=== PATIENT | male | born 2000 | race African-American/Black ===

== ENCOUNTER 2021-03-06 17:53 | Emergency (ER) | payer OTHER, SELFPAY ==
--- NOTE | 2021-03-06 | ECG_ITS ---
Test Reason : PALPITATIONS Blood Pressure : / mmHG Vent. Rate : 083 BPM Atrial Rate : 083 BPM P-R Int : 170 ms QRS Dur : 094 ms QT Int : 346 ms P-R-T Axes : 066 081 026 degrees QTc Int : 406 ms Normal sinus rhythm Normal ECG No previous ECGs available Referred By: Generic ED Physician Electronically Signed By:MELINDA SANCHEZ MD
--- NOTE | ~2021-03-06 | XR_ITS ---
EXAMINATION: XR CHEST CLINICAL INFORMATION: Right-sided rib pain COMPARISON: 01/28/2017 TECHNIQUE: 2 views of the chest were obtained. FINDINGS: No significant abnormality is noted involving the heart, lungs, mediastinum, bony thorax or soft tissues. XR/XR chest 2V IMPRESSION: Unremarkable examination.
[2021-03-06 18:24] VITALS: BP 125/67; PULSE 86; RESP 18; TEMP 36.9; O2SAT 97; BMI 22.6
--- NOTE | 2021-03-06 21:14 | ED.CHESTPAIN ---
HPI - Chest Pain General Chief Complaint: Chest Pain Stated Complaint: rib pain Time Seen by Provider: 03/06/21 20:36 Source: patient Mode of arrival: ambulatory Limitations: no limitations History of Present Illness HPI narrative: Patient presents to ED for bilateral chest wall pain for 2 months. Patient denies any shortness of breath, chest pain on inspiration, swelling of lower extremities, calf pain, coughing up blood, fever, or chills. Patient does admits to doing large number of pushups every day for the past 2 months and other workouts. Patient denies any blunt trauma to the chest. Related Data Previous Rx's Medication Instructions Recorded naproxen 500 mg PO BID PRN #20 tab 03/06/21 Allergies Allergy/AdvReac Type Severity Reaction Status Date / Time No Known Allergies Allergy Verified 03/06/21 18:23 [No Known Allergies*] Review of Systems Review of Systems: Yes all other systems are reviewed and are negative Constitutional: Constitutional: Reports as per HPI and Reports no additional constitutional complaints Eyes: Eyes: Reports as per HPI and Reports no additional eye complaints ENT: Reports system reviewed and no additional complaints, except as documented and Reports as per HPI Cardiovascular: Cardiovascular: Reports as per HPI, Reports no additional cardiovascular complaints and Reports chest pain Respiratory: Respiratory: Reports as per HPI and Reports no additional respiratory complaints Gastrointestinal: Gastrointestinal: Reports as per HPI and Reports no additional gastrointestinal complaints Musculoskeletal: Musculoskeletal: Reports no additional musculoskeletal complaints and Reports as per HPI Neurologic: Reports system reviewed and no additional complaints, except as documented and Reports as per HPI Psychiatric: Psychiatric: Reports no additional psychiatric complaints and Reports as per HPI FOR[facility]LY [facility] Social History Social History Smoked in Last 30 Days: No Use of substances other than those prescribed or required for medical reasons: No Advance Directives: No Advance Directives Information Provided: Yes Physical Exam Vital Signs: Vital Signs: Last Vital Signs Temp 98.4 F 03/06/21 18:24 Pulse 86 03/06/21 18:24 Resp 18 03/06/21 18:24 BP 125/67 03/06/21 18:24 Pulse Ox 97 03/06/21 18:24 Body Mass Index 22.6 Const: General: cooperative, healthy appearing, comfortable, no acute distress, well developed and awake Orientation/consciousness: patient oriented x3 HENMT: Head: Yes normal to inspection, Yes No palpable skull fracture present, Yes normocephalic and Yes atraumatic Eyes: General: appearance normal, both eyes and all related structures Neck: Neck: Yes normal visual inspection, Yes full ROM, Yes no lymphadenopathy, Yes no meningeal signs, Yes trachea midline and Yes supple Chest: Other: Positive for bilateral chest wall tenderness on palpation. Negative for crepitus Chest palpation & inspection: normal inspection of the chest Resp: Effort & Inspection: normal respiratory effort and able to speak in complete sentences Auscultation: clear to auscultation bilaterally, no crackles, no rales, no rhonchi and no wheezes Cardio: Jugular venous distension: no JVD Heart sounds: S1 normal heart sound present and S2 normal heart sound present GI: Other: Negative seatbelt sign Inspection: Yes normal to inspection and No abdominal wall ecchymosis Palpation (GI): Soft to palpation, not firm, nontender, no guarding and not rigid : General: No CVA tenderness and Yes no CVA tenderness Back/Spine/Pelvis: Back: no CVA tenderness, No CVA tenderness and No back tenderness Skin: General skin exam: no rashes or lesions noted and elasticity normal Neuro: General: patient oriented x3, no meningeal signs and CN's II-XI intact bilaterally Cranial nerves: Yes CN's II-XII intact bilaterally Extrem: Other: Negative for any swelling, erythema, calf tenderness, or pitting edema of lower extremities. General: Yes normal to inspection and Yes full ROM Psych: Appearance: grossly normal, well kempt and not disheveled Course Course Course Narrative: Patient EKG normal. Will have chest x-ray done Reevaluation(s) Reevaluation #1: Patient EKG normal. Negative STEMI. Chest x-ray negative for pneumonia, pneumothorax, rib fractures. Not suspecting cardiac etiology or PE. Patient is safe for discharge. Perc score 0 MDM - Chest Pain MDM Narrative Medical decision making narrative: Chest wall pain ECG Data ECG #1: Interpretation: Normal sinus rhythm. GA interval 170. QTC 346. QTC 406. Negative STEMI. Normal EKG Discharge Plan Discharge Clinical Impression: Atypical chest pain, Acute chest wall pain Patient Disposition: Home, Self-Care Instructions: Chest Pain (ED), Chest Wall Pain (ED) Additional Instructions: Return to the ED immediately for worsening chest pain, shortness of breath, chest pain inspiration, swelling of lower extremities, calf pain, coughing up blood, fever, chills, or any other concerning symptoms. Prescriptions: New naproxen 500 mg tablet 500 mg PO BID PRN (Reason: pain) Qty: 20 RF: 0 Referrals: Kendrick Manzanares MD [Primary Care Provider] - 2 days (Chest x-ray and EKG normal. Chest wall pain) Interventions: ED Discharge Assessment Last Done: 03/06/21 22:15 Discharge Date/Time: 03/06/21 22:16 Print Language: Grenadian
== END 2021-03-06 22:16 | disposition home or self-care (01) ==
PROVIDERS: Emergency Provider Internal Medicine; PCP Internal Medicine
DX: R07.89 Other chest pain (principal); R07.9 Chest pain, unspecified
CPT/HCPCS: 71046; 93005; 99283; 99284

== ENCOUNTER 2021-04-13 03:06 | Emergency (ER) | payer OTHER, SELFPAY ==
--- NOTE | 2021-04-13 | ECG_ITS ---
Test Reason : CHEST PAIN Blood Pressure : / mmHG Vent. Rate : 067 BPM Atrial Rate : 067 BPM P-R Int : 184 ms QRS Dur : 092 ms QT Int : 364 ms P-R-T Axes : 050 059 029 degrees QTc Int : 384 ms Normal sinus rhythm Normal ECG When compared with ECG of 06-MAR-2021 18:49, No significant change was found Referred By: Generic ED Physician Electronically Signed By:MELINDA SANCHEZ MD
[2021-04-13 04:02] VITALS: BP 122/84; PULSE 66; RESP 16; TEMP 36.8; O2SAT 98; BMI 28.4
[2021-04-13 04:10] VITALS: PULSE 69
--- NOTE | 2021-04-13 05:48 | ED_ITS ---
HPI - Chest Pain General Chief Complaint: Chest Pain Stated Complaint: chest pains Time Seen by Provider: 04/13/21 05:45 Source: patient Mode of arrival: ambulatory Limitations: no limitations History of Present Illness HPI narrative: Patient comes emergency room complaining o chest pain for 1 week, radiating towards the left shoulder. Denies shortness of breath. Patient states he noticed that the pain started after he stops smoking marijuana. Patient denies leg swelling, no dizziness, no near syncopal episodes. No palpitations. Related Data Previous Rx's Medication Instructions Recorded naproxen 500 mg PO BID PRN #20 tab 03/06/21 Allergies Allergy/AdvReac Type Severity Reaction Status Date / Time No Known Allergies Allergy Verified 03/06/21 18:23 [No Known Allergies*] Review of Systems Review of Systems: Constitutional : No Weight loss, No Fever, No Chills, No Night Sweats, No Fatigue, No Malaise ENT/Mouth : No Hearing loss, No Ear Pain, No Nasal Congestion, No Sinus Pain, No Hoarseness, No sore throat, No Rhinorrhea, No Swallowing Difficulty Eyes: No Eye Pain, No Swelling, No Redness, No Foreign Body, No Discharge, No Vision Changes Cardiovascular : Complaining chest pressure on the left side radiating towards the left shoulder, No SOB, No Dyspnea on Exertion, No Orthopnea, No Edema, No Palpitations Respiratory : No Cough, No Sputum, No Wheezing, No Smoke Exposure, No Dyspnea Gastrointestinal : No Nausea, No Vomiting, No Diarrhea, No Constipation, No abdominal Pain, No Hematochezia, No Melena Genitourinary : no irregular bleeding, No Dysuria, No Urinary Frequency, No Hematuria, No Urinary Incontinence, No Urgency, No Flank Pain, No Urinary Flow Changes, No Hesitancy Musculoskeletal : No joint pain, No Myalgias, No Joint Swelling Skin : No Skin Lesions, No rash Neuro : No Weakness, No Numbness, No Paresthesias, No Loss of Consciousness, No Dizziness, No Headache Psych : No Anxiety/Panic, No Depression, No SI/HI/AH/VH, No Social Issues, Heme/Lymph: No Bruising, No Bleeding,No Lymphadenopathy Endocrine : No Polyuria, No Polydipsia, No Temperature Intolerance [facility] Social History Social History Alcohol intake: current Alcohol intake frequency: holidays/special occasions only Smoking Status: Never smoker Use of substances other than those prescribed or required for medical reasons: Yes Substance Use Type: Marijuana Advance Directives: No Advance Directives Information Provided: No Physical Exam Vital Signs: Vital Signs: Last Vital Signs Temp 98.2 F 04/13/21 04:02 Pulse 66 04/13/21 04:02 Resp 16 04/13/21 04:02 BP 122/84 04/13/21 04:02 Pulse Ox 98 04/13/21 04:02 Body Mass Index 28.4 Appearance: Alert. Oriented X3. No acute distress. Eyes: Pupils equal, round and reactive to light. ENT: Pharynx normal. Neck: Normal inspection. Neck supple. No lymph nodes noted. No crepitus CVS: Normal heart rate and rhythm. Pulses normal. Normal S1 and S2 Respiratory: No respiratory distress. Breath sounds normal. No Wheezing. No rales Abdomen: Soft and nontender. No rigidity. No distention. good BS x4 Skin: Skin warm and dry. Normal skin color. Normal skin turgor. Extremities: No lower extremity edema. No lower extremity edema. No Lacerations. No Rash Neuro: Oriented X 3. No motor deficit. No sensory deficit. Moving all extermities. No slurred speech. Course Course Course Narrative: Discussed the labs with the patient, patient likely having musculoskeletal pain. MDM - Chest Pain Lab Data Result diagrams: 04/13/21 05:54 04/13/21 05:54 Labs: Lab Results 04/13/21 04/13/21 04/13/21 Range/Units 05:54 05:54 05:54 WBC 6.9 (4.8-10.8) X10*3/uL RBC 5.00 (4.60-5.80) X10*6/uL Hgb 16.0 (14.0-18.0) g/dl Hct 46.0 (42-52) % MCV 92.0 (80-98) fL MCH 32.0 (27.0-33.0) pg MCHC 34.8 (31.0-36.0) g/dl RDW 12.5 (11.0-16.0) % Plt Count 218 (160-400) X10*3/uL MPV 10.1 (9.4-12.4) fL Immature Gran % (Auto) 0.3 (0.0-0.4) % Neut % (Auto) 50.6 (45-73) % Lymph % (Auto) 35.1 (20-40) % Carver % (Auto) 11.4 H (2-11) % Eos % (Auto) 2.3 (0-4) % Baso % (Auto) 0.3 (0-2) % Lymph # (Auto) 2.4 (1.2-4.9) X10*3/uL Carver # (Auto) 0.8 (0.1-1.2) X10*3/uL Eos # (Auto) 0.2 (0.0-0.4) X10*3/uL Baso # (Auto) 0.0 (0.0-0.2) X10*3/uL Abs Immat Gran (auto) 0.02 (0.00-0.03) X10*3/uL Absolute Neuts (auto) 3.5 (2.0-8.3) X10*3/uL Absolute Nucleated RBC 0.000 (0.0-0.012) X10*3/uL Nucleated RBC % (auto) 0.0 (0.0-0.2) /100WBC Sodium 141 (135-145) mmol/L Potassium 4.1 (3.3-5.1) mmol/L Chloride 105 (96-108) mmol/L Carbon Dioxide 27 (22-29) mmol/L Anion Gap 13 (12-20) BUN 16 (9-16) mg/dL Creatinine 1.07 (0.5-1.4) mg/dL Estim Creat Clear Calc 109.4 Estimated GFR > 60 Random Glucose 87 (60-115) mg/dL Calcium 9.8 (8.4-10.2) mg/dL Troponin I High Sens < 3.5 (<3.5-35.0) ng/L ECG Data ECG #1: Attestation: I personally reviewed and interpreted this ECG as follows: (A rate 67, no ST segment depression or elevation, no T-wave inversion, sinus rhythm, QTC 384) Discharge Plan Discharge Clinical Impression: Atypical chest pain Patient Disposition: Home, Self-Care Instructions: Chest Pain (ED) Additional Instructions: Please follow-up with your primary care physician tomorrow. If you have any worsening or new symptoms, please return to the emergency room or call 911 Prescriptions: No Action naproxen 500 mg tablet 500 mg PO BID PRN (Reason: pain) Qty: 20 RF: 0
[2021-04-13 05:59] LABS: MANUAL DIFF FLAG NO
[2021-04-13 06:00] LABS: Basophils Percent Auto 0.3 % (0-2); Eosinophils Absolute Auto 0.2 X10*3/uL (0.0-0.4); Eosinophils Percent Auto 2.3 % (0-4); Imm Gran Abs Auto 0.02 X10*3/uL (0.00-0.03); Imm Gran Pct Auto 0.3 % (0.0-0.4); Lymphocytes Absolute Auto 2.4 X10*3/uL (1.2-4.9); Lymphocytes Percent Auto 35.1 % (20-40); Mean Corpuscular HGB Conc 34.8 g/dl (31.0-36.0); Mean Platelet Volume 10.1 fL (9.4-12.4); Monocytes Absolute Auto 0.8 X10*3/uL (0.1-1.2); Monocytes Percent Auto 11.4 % (2-11); Neutrophils Absolute Auto 3.5 X10*3/uL (2.0-8.3); Neutrophils Percent Auto 50.6 % (45-73); Platelet Count 218 X10*3/uL (160-400); Red Cell Distribution Width 12.5 % (11.0-16.0); White Blood Count 6.9 X10*3/uL (4.8-10.8)
[2021-04-13 06:27] LABS: Anion Gap 13 (12-20); Blood Urea Nitrogen 16 mg/dL (9-16); Calcium 9.8 mg/dL (8.4-10.2); Carbon Dioxide 27 mmol/L (22-29); Chloride 105 mmol/L (96-108); Creatinine Clr Calc Pharmacy 109.4; Estimated Glomerular Filt Rate > 60; Glucose Random 87 mg/dL (60-115); Potassium 4.1 mmol/L (3.3-5.1); Sodium 141 mmol/L (135-145)
[2021-04-13 06:36] LABS: Troponin-I High Sensitivity < 3.5 ng/L (<3.5-35.0)
== END 2021-04-13 06:47 | disposition home or self-care (01) ==
PROVIDERS: Emergency Provider Emergency Medicine
DX: R07.89 Other chest pain (principal)
CPT/HCPCS: 36415; 80048; 84484; 85025; 93005; 99283; 99285

== ENCOUNTER 2021-04-19 23:53 | Emergency (ER) | payer OTHER, SELFPAY ==
--- NOTE | ~2021-04-19 | XR_ITS ---
EXAMINATION: XR CHEST CLINICAL INFORMATION: Chest pain COMPARISON: 03/06/2021 TECHNIQUE: Frontal view of the chest was obtained. FINDINGS: The lungs are clear with no focal consolidation. No evidence of pneumothorax, pulmonary edema, or pleural effusions. The cardiomediastinal silhouette is unremarkable. No acute osseous findings. XR/XR chest 1V IMPRESSION: No acute cardiopulmonary findings.
--- NOTE | 2021-04-20 | ECG_ITS ---
Test Reason : CHEST PAIN Blood Pressure : / mmHG Vent. Rate : 080 BPM Atrial Rate : 080 BPM P-R Int : 170 ms QRS Dur : 090 ms QT Int : 342 ms P-R-T Axes : 064 074 046 degrees QTc Int : 394 ms Normal sinus rhythm Normal ECG When compared with ECG of 13-APR-2021 04:12, No significant change was found Referred By: Generic ED Physician Electronically Signed By:MELINDA SANCHEZ MD
[2021-04-20 01:48] VITALS: BP 125/76; PULSE 80; RESP 18; TEMP 36.8; O2SAT 98; BMI 22.6
--- NOTE | 2021-04-20 05:19 | ED.CHESTPAIN ---
HPI - Chest Pain General Chief Complaint: Chest Pain Stated Complaint: chest pain Time Seen by Provider: 04/20/21 05:13 Source: patient Mode of arrival: ambulatory History of Present Illness HPI narrative: 20-year-old male complained left-sided chest pain that continues to persist since last evaluated on 04/13 and encompasses his entire shoulder girdle as well as axilla. However, he denies any fevers, chills, recent trauma, recent travel, new cough, sore throat. Related Data Previous Rx's Medication Instructions Recorded naproxen 500 mg PO BID PRN #20 tab 03/06/21 Allergies Allergy/AdvReac Type Severity Reaction Status Date / Time No Known Allergies Allergy Verified 03/06/21 18:23 [No Known Allergies*] Review of Systems Review of Systems: Pertinent positives and negatives as stated in HPI 10 point review of systems is otherwise negative. [facility] Past Medical History Source: nursing notes reviewed Medical History No known health problems Social History Social History Alcohol intake: never Smoking Status: Never smoker Use of substances other than those prescribed or required for medical reasons: No Substance Use Type: Marijuana Advance Directives: No Advance Directives Information Provided: No Physical Exam Vital Signs: Vital Signs: Last Vital Signs Temp 98.3 F 04/20/21 01:48 Pulse 80 04/20/21 01:48 Resp 18 04/20/21 01:48 BP 125/76 04/20/21 01:48 Pulse Ox 98 04/20/21 01:48 Body Mass Index 22.6 VITAL SIGNS: Reviewed. GENERAL: Well developed, well nourished, in no acute distress. HEAD: Normocephalic/atraumatic EYES: PERRLA, EOMI EARS: Ext canals without abnormality NOSE: Nares patent bilateral OROPHARYNX: no oral lesions noted, posterior pharynx clear NECK: Supple, no adenopathy LUNGS: Normal breath sounds. No adventitious sounds or accessory muscle use. SpO2<98> CHEST WALL: Mild pain on palpation across anterior chest wall across to the axilla without erythema are crepitus CARDIOVASCULAR: Regular rate and rhythm without noted murmurs ABDOMEN: Soft, non-tender, non-distended with bowel sounds. MUSCULOSKELETAL: No tenderness, deformities, or effusions noted on gross inspection. EXTREMITIES: No cyanosis, clubbing or edema. NEUROLOGIC: Alert and oriented x 4. Course Course Course Narrative: 20-year-old male with history and clinical presentation most consistent with musculoskeletal pain, however review brief investigations as well as review of prior lab work from 04/13 there are no acute findings and history is most consistent with musculoskeletal such as costochondritis. Patient was informed of all results and discharged in stable condition with instructions to follow-up with his primary care provider. MDM - Chest Pain Lab Data Labs: Lab Results 04/20/21 Range/Units 05:27 D-Dimer < 200 NG/ML Discharge Plan Discharge Clinical Impression: Atypical chest pain, Costochondritis Patient Disposition: Home, Self-Care Instructions: Costochondritis (ED) Additional Instructions: 1. Tylenol 1000 mg, orally, every 6 hours as needed for pain control. Do not exceed 4000 mg within 24 hours. 2. Lidocaine patch, these are available in every [facility], apply to area of maximal pain as instructed on the outside packaging. 3. Please follow-up with your primary care provider in the next 2-3 days for re-evaluation. Return to the emergency room for any acute worsening of symptoms. Prescriptions: No Action naproxen 500 mg tablet 500 mg PO BID PRN (Reason: pain) Qty: 20 RF: 0 Referrals: Physician,Unknown [Primary Care Provider] - 2 days
[2021-04-20 05:41] LABS: D Dimer < 200 NG/ML
== END 2021-04-20 06:28 | disposition home or self-care (01) ==
PROVIDERS: Emergency Provider Student in an Organized Health Care Education/Training Program
DX: R07.89 Other chest pain (principal); M94.0 Chondrocostal junction syndrome [Tietze]
CPT/HCPCS: 36415; 71045; 85379; 93005; 99283; 99284

== ENCOUNTER 2022-06-29 12:37 | Outpatient (REF) | payer OTHER, SELFPAY ==
[2022-06-29 13:50] LABS: HBS Num1 1.99 mIU/mL (0-7.99); HBc Num1 0.09 S/CO (0.00-0.79); HBsAGNum1 0.26 S/CO (0.00-0.99); HIV AB/AG Nonreactive (Nonreactive); HIV Num 1 0.13 S/CO (0.00-0.99); Hepatitis B Core Antibody Nonreactive (Nonreactive); Hepatitis B Surface Antigen Negative (Negative); ~HepC Num1 0.07 S/CO (0.00-0.79); ~Hepatitis B Surface Antibody NONREACTIVE (Nonreactive); ~Hepatitis C Antibody Nonreactive (Nonreactive)
[2022-06-29 14:33] LABS: Syphilis Screen Nonreactive (Nonreactive)
== END 2022-06-29 12:38 | disposition home or self-care (01) ==
LOC: HO.LAB 12:37
PROVIDERS: Visit Provider Nurse Practitioner Family
DX: Z11.4 Encounter for screening for human immunodeficiency virus [HIV] (principal); Z11.3 Encounter for screening for infections with a predominantly sexual mode of transmission
CPT/HCPCS: 86704; 86706; 86780; 86803; 87086; 87340; 87389

== ENCOUNTER 2023-11-28 13:36 | Outpatient (AMB) | payer OTHER, SELFPAY ==
--- NOTE | 2023-11-28 13:42 | MHC.PC.OV ---
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 Accompanied by: Self / Same As Patient Allergies No Known Allergies [No Known Allergies*] Allergy (Verified 11/28/23 13:48) Medication List - Last Reconciled 11/28/23 by Layne Lindquist MD No Known Home Meds Tobacco use date assessed: 11/28/23 Dental Screening Dental Screen Date: 11/28/23 Did you have a dental visit in the last 12 months?: Yes Did you have a dental problem in the last 6 months where you did not have access to dental care?: No Was dental information given to patient?: Patient has dentist HPI HPI Comments History of Present Illness Details This is a 23-year-old male that comes for his physical exam. No chest pain or shortness of breath. Complains of skin warts in right hand. Doing well. [facility] Medical History (Updated 11/28/23 @ 13:57 by Layne Lindquist MD) Skin lesion Costochondritis Surgical History No pertinent past surgical history Family History Mother No problems noted. Father No problems noted. Paternal Uncle Lymphoma, Onset Age: 35 Social History Housing: House Alcohol intake: current Alcohol intake frequency: holidays/special occasions only Alcohol type: wine and hard liquor Patient Tobacco Use Status: Never used Tobacco e-Cigarette/Vaping Use: Never Used Second Hand Smoke Exposure: No service: No Current occupational status: employed and student Current occupational exposures/hazards: No Cognitive needs: No Hearing needs: No Vision needs: Yes Questionnaire PHQ-9 Over the last 2 weeks, how often have you been bothered by any of the following problems? 1. Little interest or pleasure in doing things: not at all 2. Feeling down, depressed, or hopeless: not at all 3. Trouble falling or staying asleep, or sleeping too much: not at all 4. Feeling tired or having little energy: not at all 5. Poor appetite or overeating: not at all 6. Feeling bad about yourself - or that you are a failure or have let yourself or your family down: not at all 7. Trouble concentrating on things, such as reading the newspaper or watching television: not at all 8. Moving or speaking so slowly that other people could have noticed. Or the opposite - being so fidgety or restless that you have been moving around a lot more than usual: not at all 9. Thoughts that you would be better off or of hurting yourself in some way: not at all Total score: 0 Depression Screening Interpretation: Negative Depression Screening Done: Yes 63835 - PHQ-9 Billing: Yes Source: Developed by Drs. Daniel Vega, Teresa Sutherland, Raimundo Fitzgerald and colleagues, with an educational tonio from [employer]. Thrive Questionnaire Date Thrive assessed: 11/28/23 I am a: Patient What is your living situation today?: I have a steady place to live Within the past 12 months, did the food you bought not last and you didn't have the money to get more?: Never true Within the past 12 months, did you worry whether your food would run out before you got money to buy more?: Never true Do you have trouble paying for medicines?: No Do you have trouble getting transportation to medical appointments?: No Do you have trouble paying your heating and electricity bill?: No Do you have trouble taking care of your child, family member or friend?: No Do you have trouble with day-to-day activities such as bathing, preparing meals, shopping, managing finances, etc.?: No Are you currently unemployed and looking for a job?: No Are you interested in more education?: No Please select the resources that you would like help with: None Currently or been in a relationship where the following occur: no concerns reported AUDIT C Alcohol Use Questionnaire (AUDIT-C) 1. How often do you have a drink containing alcohol?: Monthly or less 2. How many drinks containing alcohol do you have on a typical day when you are drinking?: 1 or 2 3. How often do you have six or more drinks on one occasion?: Never Total Score: 1 Score Reviewed/Action Taken: No MARYA-7 AMB Questionnaire MARYA-7 Date MARYA - 7 assessed: 11/28/23 Feeling nervous, anxious, or on edge: 0 = Not at all Not being able to stop or control worryin = Not at all Worrying too much about different things: 0 = Not at all Trouble relaxin = Not at all Being so restless that it is hard to sit still: 0 = Not at all Becoming easily annoyed or irritable: 0 = Not at all Feeling afraid as if something awful might happen: 0 = Not at all Total MARYA-7 score (0-4 normal; 5-9 mild; 10-14 moderate; 15-21 severe): 0 Source: Developed by Drs. Daniel Vega, Teresa Sutherland, Raimundo Fitzgerald and colleagues, with an educational tonio from [employer]. MARYA-7 Assessment Billing MARYA-7 Assessment Tool: MARYA-7 Assessment 74425 Review of Systems Const All systems reviewed & are unremarkable except as noted in HPI and below Eyes Reports no additional complaints, Denies change in vision and Denies other visual disturbances Card Denies chest pain at rest, Denies chest pain with activity, Denies edema, Denies irregular heart rhythm, Denies claudication, Denies dyspnea, Denies dyspnea on exertion, Denies orthopnea, Denies paroxysmal nocturnal dyspnea and Denies slow heart rate Resp Denies cough, Denies dyspnea and Denies dyspnea on exertion GI Denies abdominal pain, Denies change in bowel habits, Denies excessive flatus, Denies nausea and Denies vomiting Denies urinary hesitancy, Denies urinary incontinence and Denies urinary urgency Musc Denies abnormal gait, Denies atrophy, Denies deformity and Denies limited range of motion Skin/Breast Denies bleeding lesions, Denies changing lesions and Denies rash Neuro Denies abnormal gait, Denies behavioral changes, Denies confusion and Denies lack of coordination Psych Denies behavioral changes and Denies confusion Physical exam (Primary Care) Vital Signs: Last Vital Signs BP 120/80 11/28/23 13:43 BMI result Body Mass Index 32.0 Tobacco/Smoking Status: Tobacco use Status Tobacco use date assessed 11/28/23 11/28/23 13:47 Patient Tobacco Use Status Never used Tobacco 11/28/23 13:47 e-Cigarette/Vaping Use Never Used 11/28/23 13:47 PHQ-9: PHQ-9 Score PHQ-9: Total score 0 11/28/23 13:47 Depression Screening Interpretation: Negative Thrive Assessment: Date of Thrive Assessment Date Thrive assessed 11/28/23 11/28/23 13:47 Currently or been in a relationship where the following occur: no concerns reported Const General: No confusion Orientation/consciousness: patient oriented x3 and No confusion HENMT Head: Yes normal to inspection, Yes normocephalic and Yes atraumatic Ears: external ears normal Eyes General: appearance normal, both eyes and all related structures Eyelids: Yes eyelids normal Conjunctivae: conjunctivae normal Neck Neck: Yes normal visual inspection and Yes supple Resp Effort & Inspection: normal respiratory effort Auscultation: clear to auscultation bilaterally Cardio Jugular venous distension: no JVD Rate: regular rate Rhythm: regular rhythm Heart sounds: S1 normal heart sound present and S2 normal heart sound present GI Inspection: Yes normal to inspection Palpation (GI): Soft to palpation and nontender Auscultation: normal bowel sounds Back/Spine/Pelvis Other: warts in right hand Neuro General: patient oriented x3, no focal motor deficits and No confusion Extrem General: Yes full ROM Psych Appearance: grossly normal Office Procedures Flu Questionnaire Does the patient have a severe egg allergy?: No Immunizations flu vacc [id number] 6mos up(PF) 60 mcg(15 mcgx4)/0.5 mL IM syringe Performing Provider: Layne Lindquist MD Performing Location: [facility] Documented (not given) by: CHHAYA Maloney on 11/28/23 13:47 Reason Not Given: Patient Refused Assessment and Plan Assessment & Plan (1) Encounter for physical examination: Code(s): Z00.00 - Encounter for general adult medical examination without abnormal findings Plan: Repeat in a year. Orders: Orders Influenza [id number] Immunization Today Z23 - Encounter for immunization Lipid Panel Today Z00.00 - Encounter for general adult medical examination without abnormal findings Comprehensive [place]. Panel Fast Today Z00.00 - Encounter for general adult medical examination without abnormal findings Referrals Dermatology Referral B07.9 - Viral wart, unspecified Coding Level of Care Code Est Pt Prev Care 18-39y(10839) Diagnoses Encounter for physical examination Z00.00 Additional Codes MARYA-7 Assessment Billing - MARYA-7 Assessment Tool: MARYA-7 Assessment 52354 ([id number]) Time Spent (min) 31
[2023-11-28 13:43] VITALS: BP 120/80; BMI 32.0
== END 2023-11-28 13:55 | disposition home or self-care (01) ==
PROVIDERS: Visit Provider Internal Medicine
DX: Z00.00 Encounter for general adult medical examination without abnormal findings (principal)
CPT/HCPCS: 99395

== ENCOUNTER 2024-05-12 08:01 | Outpatient (REF) | payer OTHER, SELFPAY ==
[2024-05-12 09:24] LABS: HBS Num1 0.67 mIU/mL (0-7.99); HBc Num1 0.19 S/CO (0.00-0.79); HBsAGNum1 0.26 S/CO (0.00-0.99); Hepatitis B Core Antibody Nonreactive (Nonreactive); Hepatitis B Surface Antigen Negative (Negative); ~Hepatitis B Surface Antibody NONREACTIVE (Nonreactive)
[2024-05-13 22:08] LABS: Mumps Virus IgG Antibody <9.00 AU/mL; Rubella IgG Antibody <0.90 Index
[2024-05-15 08:28] LABS: TS Negative Control Passed; TS Panel A 0; TS Panel B 0; TS Positive Control Passed; TSpotTB Negative (Negative)
== END 2024-05-12 08:02 | disposition home or self-care (01) ==
LOC: HO.LAB 08:01
PROVIDERS: PCP Internal Medicine; Visit Provider Internal Medicine
DX: Z23 Encounter for immunization (principal); Z11.1 Encounter for screening for respiratory tuberculosis
CPT/HCPCS: 36415; 86481; 86704; 86706; 86735; 86762; 86765; 86787; 87340

== ENCOUNTER 2024-06-16 16:43 | Outpatient (AMB) | payer OTHER, SELFPAY ==
--- NOTE | 2024-06-16 16:48 | AM.OFFVISNUR ---
Intake Visit Reasons: MMR vaccine Allergies No Known Allergies [No Known Allergies*] Allergy (Verified 11/28/23 13:48) Assessment & Plan Assessment & Plan Orders: Orders MMR Immunization Today Z23 - Encounter for immunization Medications: New M-M-R II (PF) (measles,mumps,rubella vacc(PF)) 0.5 mL subcut ONCE 1 ea 0RF NS Z23 - Encounter for immunization
== END 2024-06-16 16:51 | disposition home or self-care (01) ==
PROVIDERS: PCP Internal Medicine; Visit Provider Internal Medicine
DX: Z23 Encounter for immunization (principal)
CPT/HCPCS: 90471; 90707

== ENCOUNTER 2024-08-26 08:59 | Outpatient (AMB) | payer OTHER, SELFPAY ==
--- NOTE | 2024-08-26 09:05 | AM.OFFVISNUR ---
Intake Visit Reasons: MMR, Hepatitis B and Tdap Allergies No Known Allergies [No Known Allergies*] Allergy (Verified 11/28/23 13:48) Assessment & Plan Assessment & Plan Orders: Orders Hepatitis B Adult Immunization Today Z23 - Encounter for immunization TDaP Immunization Today Z23 - Encounter for immunization Medications: New Recombivax HB (PF) (hepatitis B virus vacc.rec(PF)) 1.0 mL IM ONCE 1 mL 0RF NS Z23 - Encounter for immunization Boostrix Tdap (diphth,pertus(acell),tetanus) 0.5 mL IM ONCE 0.5 mL 0RF NS Z23 - Encounter for immunization
--- NOTE | 2024-08-26 09:25 | AM.OFFVISNUR ---
Intake Visit Reasons: MMR, Hepatitis B and Tdap Allergies No Known Allergies [No Known Allergies*] Allergy (Verified 11/28/23 13:48) Assessment & Plan Assessment & Plan Orders: Orders Hepatitis B Adult Immunization Today Z23 - Encounter for immunization TDaP Immunization Today Z23 - Encounter for immunization Medications: New Boostrix Tdap (diphth,pertus(acell),tetanus) 0.5 mL IM ONCE 0.5 mL 0RF NS Z23 - Encounter for immunization
== END 2024-08-26 09:27 | disposition home or self-care (01) ==
PROVIDERS: PCP Internal Medicine; Visit Provider Internal Medicine
DX: Z23 Encounter for immunization (principal)

== ENCOUNTER → 2024-08-26 08:59 | Outpatient (BNVA) | payer OTHER, SELFPAY | PROVIDERS: PCP Internal Medicine; Visit Provider Internal Medicine | DX: Z23 Encounter for immunization (principal) | CPT/HCPCS: 90471; 90472; 90715; 90746 ==

== ENCOUNTER 2024-09-21 08:59 | Outpatient (AMB) | payer OTHER, SELFPAY ==
--- NOTE | 2024-09-21 09:33 | AM.OFFVISNUR ---
Intake Visit Reasons: MMR Vaccine Allergies No Known Allergies [No Known Allergies*] Allergy (Verified 11/28/23 13:48) Assessment & Plan Assessment & Plan Orders: Orders MMR Immunization Today Z23 - Encounter for immunization Medications: New M-M-R II (PF) (measles,mumps,rubella vacc(PF)) 0.5 mL subcut ONCE 1 ea 0RF NS Z23 - Encounter for immunization
== END 2024-09-21 09:34 | disposition home or self-care (01) ==
PROVIDERS: PCP Internal Medicine; Visit Provider Internal Medicine
DX: Z23 Encounter for immunization (principal)

== ENCOUNTER → 2024-09-21 08:59 | Outpatient (BNVA) | payer OTHER, SELFPAY | PROVIDERS: PCP Internal Medicine; Visit Provider Internal Medicine | DX: Z23 Encounter for immunization (principal) | CPT/HCPCS: 90471; 90707 ==

== ENCOUNTER 2025-07-26 10:32 | Outpatient (AMB) | payer OTHER, SELFPAY ==
--- NOTE | 2025-07-26 10:36 | A.OFFPC_ITS ---
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 Accompanied by: Self / Same As Patient Allergies No Known Allergies (No Known Allergies*) Allergy (Verified 07/26/25 10:46) Medication List - Last Reconciled 07/26/25 by LC Higginbotham No Known Home Meds Tobacco use date assessed: 07/26/25 Dental Screening Dental Screen Date: 07/26/25 Did you have a dental visit in the last 12 months?: Yes Did you have a dental problem in the last 6 months where you did not have access to dental care?: No Was dental information given to patient?: Patient has dentist HPI P.E HPI Details Dentist: up to date Eye: up to date Snellen: Right: Left: Corrected vision: yes, glasses and contacts STI screening:n/a Colonoscopy:n/a Pap Smer:n/a PHQ-9: Flu: no COVID:x2 Tdap: 2023 Diet:regular Exercise: He is working once or twice a week; using the treadmill and stairmasters The patient is a 25-year-old male presenting for a wellness visit and management of verrucae. The patient reports an increase in the number of warts on his fingers, which have also spread to his forehead. He has previously consulted a investigator cash shortage who attempted cryotherapy, but the warts persisted. The patient attempted self- treatment with [id number] cryotherapy products, which were ineffective. The patient has received two doses of the COVID-19 vaccine and a tetanus booster last year. He does not regularly receive the influenza vaccine. The patient engages in physical activity once or twice a week, primarily using the treadmill and stairs. [facility] Medical History Skin lesion Costochondritis Surgical History No pertinent past surgical history Family History Mother No problems noted. Father No problems noted. Paternal Uncle Lymphoma, Onset Age: 35 Social History Housing: House Alcohol intake: current Alcohol intake frequency: holidays/special occasions only Alcohol type: wine and hard liquor Patient Tobacco Use Status: Never used Tobacco e-Cigarette/Vaping Use: Never Used Second Hand Smoke Exposure: No service: No Current occupational status: employed and student Current occupational exposures/hazards: No Cognitive needs: No Hearing needs: No Vision needs: Yes Questionnaire PHQ-9 Over the last 2 weeks, how often have you been bothered by any of the following problems? 1. Little interest or pleasure in doing things: not at all 2. Feeling down, depressed, or hopeless: not at all 3. Trouble falling or staying asleep, or sleeping too much: not at all 4. Feeling tired or having little energy: not at all 5. Poor appetite or overeating: not at all 6. Feeling bad about yourself - or that you are a failure or have let yourself or your family down: not at all 7. Trouble concentrating on things, such as reading the newspaper or watching television: not at all 8. Moving or speaking so slowly that other people could have noticed. Or the opposite - being so fidgety or restless that you have been moving around a lot more than usual: not at all 9. Thoughts that you would be better off or of hurting yourself in some way: not at all Total score: 0 Depression Screening Interpretation: Negative Depression Screening Done: Yes 19903 - PHQ-9 Billing: Yes Source: Developed by Drs. Daniel Vega, Teresa Sutherland, Raimundo Fitzgerald and colleagues, with an educational tonio from [employer]. Thrive Questionnaire Date Thrive assessed: 07/26/25 I am a: Patient What is your living situation today?: I have a steady place to live Within the past 12 months, did the food you bought not last and you didn't have the money to get more?: Never true Within the past 12 months, did you worry whether your food would run out before you got money to buy more?: Never true Do you have trouble paying for medicines?: No Do you have trouble getting transportation to medical appointments?: No Do you have trouble paying your heating and electricity bill?: No Do you have trouble taking care of your child, family member or friend?: No Do you have trouble with day-to-day activities such as bathing, preparing meals, shopping, managing finances, etc.?: No Are you currently unemployed and looking for a job?: No Are you interested in more education?: No Please select the resources that you would like help with: None Currently or been in a relationship where the following occur: No concerns reported THRIVE Score: 0 AUDIT C Alcohol Use Questionnaire (AUDIT-C) 1. How often do you have a drink containing alcohol?: Monthly or less 2. How many drinks containing alcohol do you have on a typical day when you are drinking?: 3 or 4 3. How often do you have six or more drinks on one occasion?: Less than monthly Total Score: 3 MARYA-7 AMB Questionnaire MARYA-7 Date MARYA - 7 assessed: 07/26/25 Feeling nervous, anxious, or on edge: 0 = Not at all Not being able to stop or control worryin = Not at all Worrying too much about different things: 0 = Not at all Trouble relaxin = Not at all Being so restless that it is hard to sit still: 0 = Not at all Becoming easily annoyed or irritable: 0 = Not at all Feeling afraid as if something awful might happen: 0 = Not at all Total MARYA-7 score (0-4 normal; 5-9 mild; 10-14 moderate; 15-21 severe): 0 Source: Developed by Drs. Daniel Vega, Teresa Sutherland, Raimundo Fitzgerald and colleagues, with an educational tonio from [employer]. MARYA-7 Assessment Billing MARYA-7 Assessment Tool: MARYA-7 Assessment 43550 Review of Systems Const Denies headache(s) Eyes Denies loss of vision ENT Denies vertigo, Denies dizziness, Denies headache(s) and Denies sore throat Card Denies chest pain, Denies leg edema and Denies lightheadedness Resp Denies cough, Denies hemoptysis and Denies wheezing GI Denies abdominal pain, Denies melena, Denies constipation, Denies diarrhea and Denies vomiting Denies dysuria, Denies urinary frequency and Denies urinary urgency Musc Denies arthralgias, Denies joint swelling, Denies numbness and Denies tingling Skin/Breast Reports other (Warts the fingers, and one single wart to left forehead) Neuro Denies Abnormal speech present, Denies behavioral changes, Denies vertigo, Denies dizziness, Denies headache(s), Denies loss of vision, Denies memory loss, Denies numbness and Denies tingling Psych Denies anxiety, Denies behavioral changes, Denies depression, Denies memory loss and Denies panic attacks Ryan/Lymph Denies easy bleeding and Denies easy bruising Aller/Immun Denies wheezing Physical exam (Primary Care) Vital Signs: Last Vital Signs Temp 97.3 F 07/26/25 10:37 Pulse 74 07/26/25 10:37 Resp 18 07/26/25 10:37 BP 120/64 07/26/25 10:37 Pulse Ox 97 07/26/25 10:37 Oxygen Delivery Method Room Air 07/26/25 10:37 BMI result Body Mass Index 31.7 Tobacco/Smoking Status: Tobacco use Status Tobacco use date assessed 07/26/25 07/26/25 10:43 Patient Tobacco Use Status Never used Tobacco 07/26/25 10:43 e-Cigarette/Vaping Use Never Used 07/26/25 10:43 PHQ-9: PHQ-9 Score PHQ-9: Total score 0 07/26/25 10:43 Depression Screening Interpretation: Negative Thrive Assessment: Date of Thrive Assessment Date Thrive assessed 07/26/25 07/26/25 10:43 Currently or been in a relationship where the following occur: No concerns reported Const General: healthy appearing, no acute distress, alert and awake Nutritional Appearance: well nourished Orientation/consciousness: oriented to person, oriented to place and oriented to time HENMT Ears: TM's normal bilaterally General nose exam: Normal nasal mucous membranes and turbinates present Eyes Conjunctivae: conjunctivae normal Sclerae: sclerae normal Pupils: Equal, round and reactive pupils present Neck Neck: Yes no lymphadenopathy and Yes no JVD Thyroid: Thyroid normal Carotids: no bruits Resp Effort & Inspection: normal respiratory effort and not tachypneic Auscultation: no crackles, no rales, no rhonchi and no wheezes Cardio Rate: regular rate Rhythm: regular rhythm Heart sounds: no murmurs and normal S1 and S2 GI Palpation (GI): Soft to palpation, nontender, no hepatomegaly and no splenomegaly Auscultation: normal bowel sounds Skin General skin exam: dry skin Lesions: lesion noted (Warts to the tip of fingers close to nailbed and one single wart-forehead) Neuro General: oriented to person, oriented to place and oriented to time Cranial nerves: Yes Equal, round and reactive pupils present Speech: No Abnormal speech present Gait exam (Neuro): Normal gait present Motor exam (neuro): no tremor noted Deep tendon reflexes (DTR's): Right triceps reflex intensity grade: 2+, Left triceps reflex intensity grade: 2+, Rt Biceps (C5, C6): 2+, Left biceps reflex intensity grade: 2+, Right brachioradialis reflex intensity grade: 2+, Left brachioradialis reflex intensity grade: 2+, Right patellar reflex intensity grade: 2+ and Left patellar reflex intensity grade: 2+ Extrem Right upper extremity: full ROM Left upper extremity: full ROM Right lower extremity: full ROM; no edema Left lower extremity: full ROM; no edema Psych Mental Status: mental status grossly normal Speech and movement: Normal speech and movement present Affect: normal affect Attitude: cooperative Thought process: Normal thought process present Coding Level of Care Code Est Pt Prev Care 18-39y(64914) Diagnoses Annual physical exam Z00.00 Viral warts, unspecified type B07.9 Viral wart type: unspecified viral wart Additional Codes PHQ-9 - 25690 - PHQ-9 Billing: Yes ([id number]) MARYA-7 Assessment Billing - MARYA-7 Assessment Tool: MARYA-7 Assessment 92073 ([id number]) Time Spent (min) 36 Assessment & Plan Assessment & Plan (1) Annual physical exam: Code(s): Z00.00 - Encounter for general adult medical examination without abnormal findings Category: Medical Plan: Preventative guidelines reviewed with the patient. No recent labs. Blood work ordered for the patient to complete as soon as possible. The patient is up-to-date on immunization. Does not routinely takes the flu vaccine. (2) Warts: Code(s): B07.9 - Viral wart, unspecified Category: Medical Qualifiers: Viral wart type: unspecified viral wart Qualified Code(s): B07.9 - Viral wart, unspecified Plan: Patient has what the bilateral fingers, and palm. He also has 1 on his left forehead that is more of recent. Patient was seen Dr. Rocha (dermatology). Reports that he will give them a call to see if he could make an appointment or if he needs a new referral. If the patient needs a new referral, he was instructed to call back the office for this to be placed. Orders: Orders Complete Blood Count Auto Diff Today Z00.00 - Encounter for general adult medical examination without abnormal findings UA CC w/rflx Micro + Cult Today Z00.00 - Encounter for general adult medical examination without abnormal findings Comprehensive [place]. Panel Fast Today Z00.00 - Encounter for general adult medical examination without abnormal findings TSH reflex Free T4 Today Z00.00 - Encounter for general adult medical examination without abnormal findings Vitamin D 25-OH Total Today Z00.00 - Encounter for general adult medical examination without abnormal findings Lipid Panel Today Z00.00 - Encounter for general adult medical examination without abnormal findings
[2025-07-26 10:37] VITALS: BP 120/64; PULSE 74; RESP 18; TEMP 36.3; O2SAT 97; BMI 31.7
--- OUTSIDE RECORDS SUMMARY | 2025-07-26 11:45 | XMS_ITS | Encounter Summary ---
Author Organization [facility] Address [address] [place] [phone] Phone Care Team Providers Care Director Meetings Name Role Phone Unavailable Primary Care Provider Unavailabl e Encounter Details Date Type Department Care Team (Late st Contact Info) Description 09/04/2016 Documentation [facility] Family Medicine [facility] [place] [address] Family Medicine, Physician [facility] [place], [place] [id number] Social History Tobacco Use Types Packs/Day Years Used Date Smoking Tobacco: Never Comments:Never smoker Sex and Gender Information Value Date Recorded Sex Assigned at Not on file Legal Sex Male 5:24 PM EDT Gender Identity Not on file Sexual Orientation Not on file documented as of this encounter Plan of Treatment Not on file documented as of this encounter Visit Diagnoses Not on filedocumented in this encounter
== END 2025-07-26 11:04 | disposition home or self-care (01) ==
LOC: HO.HMCH 10:35
PROVIDERS: PCP Internal Medicine
DX: Z00.00 Encounter for general adult medical examination without abnormal findings (principal); B07.9 Viral wart, unspecified

== ENCOUNTER → 2025-07-26 10:32 | Outpatient (BNVA) | payer OTHER, SELFPAY | PROVIDERS: PCP Internal Medicine | DX: Z00.00 Encounter for general adult medical examination without abnormal findings (principal); B07.9 Viral wart, unspecified | CPT/HCPCS: 96127; 99395 ==